=== PATIENT | female | born 1940 | race Caucasian/White ===

== ENCOUNTER → 2020-07-23 10:37 | Outpatient (BNVA) | payer MEDICARE, SELFPAY | PROVIDERS: PCP Internal Medicine; Referring Provider Internal Medicine; Visit Provider Internal Medicine Endocrinology, Diabetes & Metabolism | DX: E11.65 Type 2 diabetes mellitus with hyperglycemia (principal); E11.22 Type 2 diabetes mellitus with diabetic chronic kidney disease; I12.9 Hypertensive chronic kidney disease with stage 1 through stage 4 chronic kidney disease, or unspecified chronic kidney disease; N18.4 Chronic kidney disease, stage 4 (severe); E11.40 Type 2 diabetes mellitus with diabetic neuropathy, unspecified; E78.5 Hyperlipidemia, unspecified; E66.9 Obesity, unspecified; Z68.33 Body mass index [BMI] 33.0-33.9, adult; Z79.4 Long term (current) use of insulin | CPT/HCPCS: 82947; 95251; 99214 ==

== ENCOUNTER → 2020-12-10 08:41 | Outpatient (BNVA) | payer MEDICARE, SELFPAY | PROVIDERS: PCP Internal Medicine; Visit Provider Internal Medicine Endocrinology, Diabetes & Metabolism | CPT/HCPCS: Q3014 ==

== ENCOUNTER 2020-12-31 09:50 | Outpatient (REF) | payer MEDICARE, SELFPAY ==
[2020-12-31 12:08] LABS: Hemoglobin 12.6 g/dl (12.0-16.0); Mean Corpuscular HGB Conc 33.2 g/dl (31.0-35.0); Mean Corpuscular Hemoglobin 30.4 pg (27.0-33.0); Mean Corpuscular Volume 91.6 fL (80-98); Mean Platelet Volume 11.3 fL (9.4-12.3); Platelet Count 219 X10*3/uL (160-400); Red Blood Count 4.15 X10*6/uL (4.20-5.50); Red Cell Distribution Width 14.3 % (11.0-16.0); White Blood Count 8.2 X10*3/uL (4.8-10.8)
[2020-12-31 12:22] LABS: Estimated Average Glucose 163 mg/dL; Hemoglobin A1c % 7.3 %
[2020-12-31 12:28] LABS: Creatinine Urine 52.03 mg/dL; Microalbum/Creatinine Ratio Ur 44.2 ug/mg cr
[2020-12-31 12:37] LABS: Alanine Aminotransferase 17 U/L (0-31); Albumin Level 4.4 g/dL (3.5-5.0); Alkaline Phosphatase 95 U/L (39-117); Anion Gap 15 (12-20); Aspartate Amino Transferase 19 U/L (5-31); Bilirubin Total 0.7 mg/dL (0.0-1.0); Blood Urea Nitrogen 38 mg/dL (9-16); Carbon Dioxide 24 mmol/L (22-29); Chloride 106 mmol/L (96-108); Cholesterol 138 mg/dL; Estimated Glomerular Filt Rate 30; Glucose Fasting 141 mg/dL (60-99); HDL Cholesterol 48 mg/dL; LDL Cholesterol Calculated 65 mg/dl; Potassium 4.2 mmol/L (3.3-5.1); Sodium 141 mmol/L (135-145); Triglycerides 129 mg/dL
[2020-12-31 12:50] LABS: Free T4 (Free Thyroxine) 1.31 ng/dL (0.71-1.85); Thyroid Stimulating Hormone 3.43 uIU/mL (0.32-4.0)
[2020-12-31 12:59] LABS: Vitamin B12 315 pg/mL (200-900)
[2021-01-01 04:43] LABS: LDL Cholesterol Direct 57 mg/dL (<100)
== END 2020-12-31 09:51 | disposition home or self-care (01) ==
LOC: HO.10HDL 09:50
PROVIDERS: Visit Provider Internal Medicine Endocrinology, Diabetes & Metabolism
DX: E11.65 Type 2 diabetes mellitus with hyperglycemia (principal)
CPT/HCPCS: 36415; 80053; 80061; 82043; 82607; 83036; 83721; 84439; 84443; 85027

== ENCOUNTER → 2021-03-11 09:27 | Outpatient (BNVA) | payer MEDICARE, SELFPAY | PROVIDERS: PCP Internal Medicine; Visit Provider Internal Medicine Endocrinology, Diabetes & Metabolism | DX: E11.40 Type 2 diabetes mellitus with diabetic neuropathy, unspecified (principal); E11.21 Type 2 diabetes mellitus with diabetic nephropathy; E11.22 Type 2 diabetes mellitus with diabetic chronic kidney disease; I12.9 Hypertensive chronic kidney disease with stage 1 through stage 4 chronic kidney disease, or unspecified chronic kidney disease; N18.4 Chronic kidney disease, stage 4 (severe); E78.5 Hyperlipidemia, unspecified; E66.9 Obesity, unspecified; Z79.4 Long term (current) use of insulin | CPT/HCPCS: 82947; 99212 ==

== ENCOUNTER → 2021-06-18 08:53 | Outpatient (BNVA) | payer MEDICARE, SELFPAY | PROVIDERS: PCP Internal Medicine; Visit Provider Nurse Practitioner Gerontology | DX: E11.65 Type 2 diabetes mellitus with hyperglycemia (principal); E11.40 Type 2 diabetes mellitus with diabetic neuropathy, unspecified; E11.21 Type 2 diabetes mellitus with diabetic nephropathy; E11.22 Type 2 diabetes mellitus with diabetic chronic kidney disease; I12.9 Hypertensive chronic kidney disease with stage 1 through stage 4 chronic kidney disease, or unspecified chronic kidney disease; N18.4 Chronic kidney disease, stage 4 (severe); E78.5 Hyperlipidemia, unspecified; E66.9 Obesity, unspecified; Z79.4 Long term (current) use of insulin | CPT/HCPCS: 82947; Q3014 ==

== ENCOUNTER → 2021-12-17 08:48 | Outpatient (BNVA) | payer MEDICARE, SELFPAY | PROVIDERS: PCP Internal Medicine; Visit Provider Nurse Practitioner Gerontology | DX: E11.65 Type 2 diabetes mellitus with hyperglycemia (principal); E11.40 Type 2 diabetes mellitus with diabetic neuropathy, unspecified; E11.22 Type 2 diabetes mellitus with diabetic chronic kidney disease; I12.9 Hypertensive chronic kidney disease with stage 1 through stage 4 chronic kidney disease, or unspecified chronic kidney disease; N18.4 Chronic kidney disease, stage 4 (severe); E78.5 Hyperlipidemia, unspecified; E66.9 Obesity, unspecified; Z68.29 Body mass index [BMI] 29.0-29.9, adult; Z79.4 Long term (current) use of insulin | CPT/HCPCS: 82947; 99212 ==

== ENCOUNTER 2022-03-12 08:46 | Outpatient (REF) | payer MEDICARE, SELFPAY ==
[2022-03-12 10:30] LABS: Alanine Aminotransferase 17 U/L (0-31); Alkaline Phosphatase 72 U/L (39-117); Anion Gap 14 (12-20); Aspartate Amino Transferase 18 U/L (5-31); Bilirubin Total 0.5 mg/dL (0.0-1.0); Blood Urea Nitrogen 33 mg/dL (9-16); Calcium 9.2 mg/dL (8.4-10.2); Carbon Dioxide 25 mmol/L (22-29); Chloride 105 mmol/L (96-108); Cholesterol 148 mg/dL; Estimated Glomerular Filt Rate 28; Glucose Fasting 119 mg/dL (60-99); HDL Cholesterol 54 mg/dL; LDL Cholesterol Calculated 79 mg/dl; Potassium 4.5 mmol/L (3.3-5.1); Sodium 139 mmol/L (135-145); Total Protein 6.6 g/dL (6.5-8.0); Triglycerides 77 mg/dL
[2022-03-12 10:49] LABS: Vitamin D 25-OH Total 41.5 ng/mL (>30)
[2022-03-12 11:40] LABS: Creatinine Urine 20.96 mg/dL; Microalbum/Creatinine Ratio Ur 38.1 ug/mg cr
[2022-03-14 02:06] LABS: LDL Cholesterol Direct 71 mg/dL (<100)
== END 2022-03-12 08:47 | disposition home or self-care (01) ==
LOC: HO.LAB 08:46
PROVIDERS: PCP Internal Medicine; Visit Provider Nurse Practitioner Gerontology
DX: E11.65 Type 2 diabetes mellitus with hyperglycemia (principal); E55.9 Vitamin D deficiency, unspecified
CPT/HCPCS: 36415; 80053; 80061; 82043; 82306; 83721

== ENCOUNTER → 2022-07-30 10:56 | Outpatient (BNVA) | payer MEDICARE, SELFPAY | PROVIDERS: PCP Internal Medicine; Visit Provider Internal Medicine Endocrinology, Diabetes & Metabolism | DX: E11.65 Type 2 diabetes mellitus with hyperglycemia (principal) | CPT/HCPCS: 82947; 83036; 99212 ==

== ENCOUNTER → 2023-01-28 11:19 | Outpatient (BNVA) | payer MEDICARE, SELFPAY | PROVIDERS: PCP Internal Medicine; Visit Provider Internal Medicine Endocrinology, Diabetes & Metabolism | DX: E11.65 Type 2 diabetes mellitus with hyperglycemia (principal) | CPT/HCPCS: 82947; 83036; 99212 ==

== ENCOUNTER → 2023-04-09 12:21 | Outpatient (BNVA) | payer MEDICARE, SELFPAY | PROVIDERS: PCP Internal Medicine; Visit Provider Internal Medicine Endocrinology, Diabetes & Metabolism | DX: E11.65 Type 2 diabetes mellitus with hyperglycemia (principal) | CPT/HCPCS: 82947; 99212 ==

== ENCOUNTER 2023-05-21 12:50 | Outpatient (AMB) | payer MEDICARE, SELFPAY ==
--- NOTE | 2023-05-21 13:40 | A.OFFVIS_ITS ---
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 Accompanied by: Daughter Allergies aspirin Allergy (Unknown, Verified 04/09/23 12:34) Unknown codeine Allergy (Unknown, Verified 04/09/23 12:34) Unknown Sulfa (Sulfonamide Antibiotics) Allergy (Unknown, Verified 04/09/23 12:34) Unknown angiotesin converting enzyme i Allergy (Unknown, Uncoded 04/09/23 12:34) Unknown contrast dye Allergy (Unknown, Uncoded 04/09/23 12:34) Unknown nonsteroidal anti inflammatoy Allergy (Unknown, Uncoded 04/09/23 12:34) Unknown HPI Comprehensive Diabetes Asmnt Most Recent Diabetes Results: Microalb/Creat Ratio 38.1 ug/mg cr 03/12/22 Cholesterol 148 mg/dL 03/12/22 HDL Cholesterol 54 mg/dL 03/12/22 Triglycerides 77 mg/dL 03/12/22 Creatinine 1.72 mg/dL (0.5-1.4) H 03/12/22 Blood Urea Nitrogen 33 mg/dL (9-16) H 03/12/22 Sodium 139 mmol/L (135-145) 03/12/22 Potassium 4.5 mmol/L (3.3-5.1) 03/12/22 Chloride 105 mmol/L (96-108) 03/12/22 Carbon Dioxide 25 mmol/L (22-29) 03/12/22 Calcium 9.2 mg/dL (8.4-10.2) 03/12/22 AST 18 U/L (5-31) 03/12/22 ALT 17 U/L (0-31) 03/12/22 Total Protein 6.6 g/dL (6.5-8.0) 03/12/22 Albumin 4.0 g/dL (3.5-5.0) 03/12/22 [facility] Medical History CAD (coronary artery disease) CKD (chronic kidney disease) stage 4, GFR 15-29 ml/min Diabetes type 2, uncontrolled Diabetic nephropathy associated with type 2 diabetes mellitus Diabetic neuropathy associated with type 2 diabetes mellitus Dyslipidemia 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 Social History Household Members: None Patient Tobacco Use Status: Former Tobacco user Quit Date: 1982 Years Smoked: approx 30 years Assessment & Plan Assessment & Plan (1) Diabetic neuropathy associated with type 2 diabetes mellitus: Code(s): E11.40 - Type 2 diabetes mellitus with diabetic neuropathy, unspecified Plan: Personal Continuous Glucose Monitor: Patients CGM information reviewed Reviewed patient's sensor data: Hypoglycemia: ? 0% Hyperglycemia:? 14% Time in Range:? 86% Average glucose for the last 2 weeks? 142 mg/dL Patient was on Vgo-[address] Srinivasan, discontinued. Reviewed Dr. Srinivasan's note was no reason stated in visit know why it was discontinued at that time. Patient is using Lantus 15 units And Humalog before meals Patient is interested in resuming Vgo 20 Explained to patient it may have been discontinued due to basal rate of 20 units. In addition at the time patient was not changing every 24 hours. Patient agreed to change Vgo every 24 hours Patient will resume Vgo-20. If hypoglycemia increases we can consider switching to Ceque device. For mealtime dosing Reviewed with patient how to use rule of 15s to treat low glucose Instructed patient to put glucose tabs, on nights stay in next to bed and carry with you at all times. Reviewed how to interpret trend arrows Reminded patient that to check finger sticks if symptoms do not match sensor reading. Discussed lag time between finger stick and sensor data.? Patient able to insert sensor independently at home without issue.? Medications: Discontinued flash glucose sensor (FreeStyle Sadie 14 Day Sensor kit) Discontinued Reason: Doctor's Order CHANGE EVERY 14 DAYS DIRECTED 2 ea 11RF E11.65 - Type 2 diabetes mellitus with hyperglycemia Patient Instructions: Patient will follow-up with unit educator in 2 weeks Coding Level of Care Code Est Pt Level 1 (96582) Diagnoses Diabetic neuropathy associated with type 2 diabetes mellitus E11.40
== END 2023-05-21 13:50 | disposition home or self-care (01) ==
PROVIDERS: PCP Internal Medicine; Visit Provider Registered Nurse Diabetes Educator
DX: E11.40 Type 2 diabetes mellitus with diabetic neuropathy, unspecified (principal)

== ENCOUNTER → 2023-05-21 12:50 | Outpatient (BNVA) | payer MEDICARE, SELFPAY | PROVIDERS: PCP Internal Medicine; Visit Provider Registered Nurse Diabetes Educator | DX: E11.40 Type 2 diabetes mellitus with diabetic neuropathy, unspecified (principal) | CPT/HCPCS: 99211 ==

== ENCOUNTER 2023-06-04 13:49 | Outpatient (AMB) | payer MEDICARE, SELFPAY ==
--- NOTE | 2023-06-04 14:17 | A.OFFVIS_ITS ---
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 Accompanied by: Daughter Allergies aspirin Allergy (Unknown, Verified 04/09/23 12:34) Unknown codeine Allergy (Unknown, Verified 04/09/23 12:34) Unknown Sulfa (Sulfonamide Antibiotics) Allergy (Unknown, Verified 04/09/23 12:34) Unknown angiotesin converting enzyme i Allergy (Unknown, Uncoded 04/09/23 12:34) Unknown contrast dye Allergy (Unknown, Uncoded 04/09/23 12:34) Unknown nonsteroidal anti inflammatoy Allergy (Unknown, Uncoded 04/09/23 12:34) Unknown HPI Comprehensive Diabetes Asmnt Most Recent Diabetes Results: Microalb/Creat Ratio 38.1 ug/mg cr 03/12/22 Cholesterol 148 mg/dL 03/12/22 HDL Cholesterol 54 mg/dL 03/12/22 Triglycerides 77 mg/dL 03/12/22 Creatinine 1.72 mg/dL (0.5-1.4) H 03/12/22 Blood Urea Nitrogen 33 mg/dL (9-16) H 03/12/22 Sodium 139 mmol/L (135-145) 03/12/22 Potassium 4.5 mmol/L (3.3-5.1) 03/12/22 Chloride 105 mmol/L (96-108) 03/12/22 Carbon Dioxide 25 mmol/L (22-29) 03/12/22 Calcium 9.2 mg/dL (8.4-10.2) 03/12/22 AST 18 U/L (5-31) 03/12/22 ALT 17 U/L (0-31) 03/12/22 Total Protein 6.6 g/dL (6.5-8.0) 03/12/22 Albumin 4.0 g/dL (3.5-5.0) 03/12/22 [facility] Medical History CAD (coronary artery disease) CKD (chronic kidney disease) stage 4, GFR 15-29 ml/min Diabetes type 2, uncontrolled Diabetic nephropathy associated with type 2 diabetes mellitus Diabetic neuropathy associated with type 2 diabetes mellitus Dyslipidemia 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 Social History Household Members: None Patient Tobacco Use Status: Former Tobacco user Quit Date: 1982 Years Smoked: approx 30 years Assessment & Plan Assessment & Plan (1) Diabetes type 2, uncontrolled: Code(s): E11.65 - Type 2 diabetes mellitus with hyperglycemia Plan: Personal Continuous Glucose Monitor: Patient has upgraded from Sadie 14 day total Sadie 2 sensor with alerts and alarms Patients CGM information reviewed Reviewed patient's sensor data: Hypoglycemia: ? 2 % Hyperglycemia:? 16% Time in Range:? 82% Average glucose for the last 2 weeks?137 mg/dL Patient resumed Vgo-20, patient did experience some overnight hypoglycemia, on other nights glucose is running in the 80s in 90s Discussed with patient and her daughter transitioning from Vgo to CeQue, this can give patient a convenience of taking mealtime insulin from a cartridge but she will have to resume the 15 units of Lantus daily Prescription signed and sent for CeQue Patient did get juice boxes and no keeps on by the side of her bed to treat any hypoglycemia Reviewed how to interpret trend arrows Reminded patient that to check finger sticks if symptoms do not match sensor reading. Discussed lag time between finger stick and sensor data.? Patient able to insert sensor independently at home without issue.? Patient Instructions: Patient will contact early childhood special educator for CeQue training Coding Level of Care Code Est Pt Level 1 (35623) Diagnoses Diabetes type 2, uncontrolled E11.65
== END 2023-06-04 14:21 | disposition home or self-care (01) ==
PROVIDERS: PCP Internal Medicine; Visit Provider Registered Nurse Diabetes Educator
DX: E11.65 Type 2 diabetes mellitus with hyperglycemia (principal)

== ENCOUNTER → 2023-06-04 13:49 | Outpatient (BNVA) | payer MEDICARE, SELFPAY | PROVIDERS: PCP Internal Medicine; Visit Provider Registered Nurse Diabetes Educator | DX: E11.65 Type 2 diabetes mellitus with hyperglycemia (principal) | CPT/HCPCS: 99211 ==